=== PATIENT | male | born 1940 | race Caucasian/White ===

== ENCOUNTER 2018-12-19 10:45 | Inpatient (IN) | payer MEDICARE, BC ==
[2019-01-05] MEDS ORDERED: Buffered Lidocaine 1% SYRIN* 1 ML/SYRINGE INTRADERM ONE (18:01)
[2019-01-08] MEDS ORDERED: Famotidine IV* 10 MG/ML 2 ML (20 mg) IV ONE (06:00)
[2019-01-08] MEDS ORDERED: Lactated Ringers 1000 ML Bag* 1,000 ML IV SCH ×2 (06:00→11:00)
[2019-01-08] MEDS ORDERED: Famotidine IV* 10 MG/ML 2 ML (20 mg) ONE (06:01)
[2019-01-08] MEDS ORDERED: Bupivacaine 0.25% W/EPI* 10 ML SDV ONE ×2 (06:35)
[2019-01-08] MEDS ORDERED: Bacitracin INJECTION* 50,000 UNITS ONE (06:37)
[2019-01-08] MEDS ORDERED: Artificial Tear OPHTH.OINT* 3.5 GM ONE (06:47)
[2019-01-08] MEDS ORDERED: Gelfoam Sponge SIZE 100* SPONGE ONE (06:50)
[2019-01-08] MEDS ORDERED: Vancomycin(*) 1,000 MG in NS 0.9% 250 ML* 250 ML IVPB ONE (07:00)
[2019-01-08] MEDS ORDERED: Midazolam* 1 MG/ML 5 ML VIAL (5 MG) ONE (07:37)
[2019-01-08] MEDS ORDERED: fentaNYL* 50 MCG/ML 2 ML VIAL (100 MCG VIAL) ONE ×4 (07:37→10:17)
[2019-01-08] MEDS ORDERED: Propofol* 500 MG/50 ML BTL ONE ×2 (08:12→10:01)
[2019-01-08] MEDS ORDERED: DiMENhydriNATE IV* 50 MG/ML VIAL ONE (08:45)
[2019-01-08] MEDS ORDERED: Propofol* 10 MG/ML 20 ML BTL ONE (08:45)
[2019-01-08] MEDS ORDERED: Succinylcholine* 20 MG/ML 10 ML VIAL ONE (08:45)
[2019-01-08] MEDS ORDERED: Ondansetron INJ* 2 MG/ML VIAL ONE (08:45)
[2019-01-08] MEDS ORDERED: Lidocaine 2% PF * 5 ML VIAL ONE (08:45)
[2019-01-08] MEDS ORDERED: Dexamethasone IV* 4 MG/ML 1 ML (4 MG) ONE (08:45)
[2019-01-08] MEDS ORDERED: oxyCODONE TAB* 5 MG TAB PO PRN (10:11)
[2019-01-08] MEDS ORDERED: HYDROcodone/ACETAMIN 5-325 MG* 1 TAB PO PRN (10:23)
[2019-01-08] MEDS ORDERED: DiMENhydriNATE IV* 50 MG/ML VIAL IV PUSH PRN (10:23)
[2019-01-08] MEDS ORDERED: Naloxone* 0.4 MG/ML 1 ML VIAL IV PRN (10:23)
[2019-01-08] MEDS ORDERED: Magnesium Hydroxide LIQ* 30 ML UDC PO PRN (11:46)
[2019-01-08] MEDS ORDERED: Ondansetron INJ* 2 MG/ML VIAL IV PRN (11:46)
[2019-01-08] MEDS ORDERED: HYDROcodone/ACETAMIN 5-325 MG* 1 TAB ONE (12:27)
[2019-01-08] MEDS ORDERED: HYDROmorphone INJ1* 1 MG/ML SYRINGE ONE (12:27)
[2019-01-08] MEDS: HYDROmorphone INJ1* 1 MG/ML SYRINGE IV PRN ×5 (12:32→13:06)
[2019-01-08] MEDS: HYDROcodone/ACETAMIN 5-325 MG* 1 TAB PO PRN ×2 (18:45→23:46)
--- NOTE | 2019-01-08 19:32 | CONS ---
CC: Dr. Nori Hendrickson; Dr. Aleshia Florentino; Dr. Ronnie Milton * CONSULTATION REPORT: DATE OF CONSULT: 01/08/19 PRIMARY CARE PROVIDER: Dr. Nori Hendrickson. NEUROSURGEON: Dr. Aleshia Florentino. REQUESTING PHYSICIAN IN CONSULTATION: Dr. Aleshia Florentino. ATTENDING PHYSICIAN: Dr. Ronnie Milton (dictated by FRANTZ Barclay). REASON FOR CONSULT: Co-medical management. HISTORY OF PRESENT ILLNESS/HOSPITAL COURSE: Mr. Peterson is a 78-year-old male with a past medical history of hypertension, hyperlipidemia, mild mitral regurgitation, cardiomyopathy, and degenerative disk disease who presented to [facility] [place] for an elective L3-L4 lumbar spine fusion with Dr. Florentino. He is seen postoperatively in his room. He has some complaints of mild back stiffness, but denies pain in the lumbar region postoperatively. He notes that he has had 2 years of progressive weakness of the bilateral lower extremities as well as pain with walking or after exercise, left greater than right. He currently denies pain in the legs. He denies headache, vision changes, dizziness, lightheadedness, chest pain, shortness of breath, cough, fevers, chills, abdominal pain, nausea, vomiting, diarrhea, or constipation. He denies myalgias , arthralgias, or weakness at this current time. PAST MEDICAL HISTORY: 1. Cardiomyopathy. 2. Mild mitral regurgitation. 3. Hypertension. 4. Hyperlipidemia. 5. GERD. 6. Migraines. 7. Rheumatoid arthritis. 8. History of melanoma, status post resection. PAST SURGICAL HISTORY: Laminectomy x2, right foot x2, left foot x1, right hand. HOME MEDICATIONS: 1. Acetaminophen 325 mg p.o. q.6 hours p.r.n. for pain. 2. Aspirin 81 mg p.o. daily. 3. Atorvastatin 40 mg p.o. daily. 4. Calcium carbonate 500 mg p.o. daily. 5. Cyanocobalamin 1000 mcg p.o. daily. 6. Cyclosporine 0.05% ophthalmic 1 drop to both eyes b.i.d. 7. Enbrel 25 mg subcu twice weekly. 8. Fluticasone nasal spray 2 sprays both nares daily. 9. Guaifenesin/dextromethorphan 1 tab p.o. daily p.r.n. for cough. 10. Hydrocodone/acetaminophen 5/325 one tab p.o. b.i.d. p.r.n. for pain. 11. Loratadine 10 mg p.o. daily. 12. Magnesium oxide 300 mg p.o. daily. 13. Metoprolol succinate 25 mg p.o. daily. 14. Multivitamin 1 cap p.o. daily. 15. Omeprazole 20 mg p.o. daily. 16. Ramipril 10 mg p.o. daily. 17. Terazosin 4 mg p.o. at bedtime. DRUG ALLERGIES: LEFLUNOMIDE, HYDROXYCHLOROQUINE, METHOTREXATE, NYSTATIN, PENICILLIN, environmental/hay fever. FAMILY HISTORY: Maternal grandfather and mother, stroke. Father, prostate cancer and heart disease. No family history of diabetes. SOCIAL HISTORY: The patient is a part-time teacher and plays piano part-time. He is , but lives home alone. His has Alzheimer's and lives at [facility]. He does not currently smoke. He quit 20 to 30 years ago. Prior to that, he smoked approximately 2 to 3 pipes per day for about 20 years. He drinks 3 alcoholic beverages per night. In the event that he is unable to make his own medical decisions, he has appointed his son, Gordo Peterson, to be his surrogate decision maker. REVIEW OF SYSTEMS: A 14-point review of systems has been performed, and all the pertinent positives and negatives are in the HPI. All other systems are negative. PHYSICAL EXAM: General: Mr. Peterson is a well-developed, well-nourished, thin, older white male who appears somewhat younger than his stated age. He appears to be in no acute distress. He appears comfortable and is pleasant and cooperative. HEENT: PERRL. EOMI. Nonicteric sclerae. Hearing grossly intact. Oral mucous membranes are moist. There are no lesions. The tongue is at midline. The pharynx is clear. The palate elevates symmetrically. Cardiovascular: Regular rate and rhythm with S1, S2 present without murmurs, rubs, clicks, or gallops. There is no JVD. There is no peripheral edema. Radial and pedal pulses are palpable. Pulmonary: Symmetrical chest expansion without use of accessory muscles. Lungs are clear to auscultation without rhonchi, wheezes, or rub. There is no digital clubbing or cyanosis. Abdomen: Abdomen is flat. Bowel sounds noted in all quadrants. The abdomen is soft. There is no tenderness to palpation. Musculoskeletal: There are clean, dry, intact dressings in place to the left and the right of the lumbar spine posteriorly. The patient is able to move all of his extremities. Motor strength is 5/5 bilaterally. Neuro: The patient is awake. He is alert and oriented x3 with cranial nerves grossly intact. Again, able to move all of his extremities with equal strength, 5/5 bilateral upper and lower. Boiler Room Helper strength is equal. ASSESSMENT AND PLAN: Mr. Peterson is a 78-year-old male with a past medical history of cardiomyopathy, hypertension, hyperlipidemia, mild mitral regurgitation, and rheumatoid arthritis who presented to [facility] [place] for an elective lumbar spine fusion today. The patient will be admitted inpatient for: 1. L3-L4 lumbar spine fusion. The patient is postop day 0. Management per Neurosurgery. 2. Hypertension. We will continue the patient's home metoprolol with hold parameters. We will hold ramipril and restart as necessary. 3. Hyperlipidemia. Continue atorvastatin. 4. Gastroesophageal reflux disease. Continue PPI. 5. Rheumatoid arthritis. The patient has held his Enbrel for 4 weeks. We will continue to hold this medication while inpatient. He should follow up with his outer diameter grinder regarding when to restart this medication. 6. DVT prophylaxis: SCDs per Neurosurgery. 7. Code status: Full code. TIME SPENT: Approximately 30 minutes were spent on this consultation, greater than half that time was spent [id number] with the patient and his son obtaining history, performing physical, and reviewing the plan of care. FRANTZ PRO [id number]/[facility] #: [id number] [place]
[2019-01-08] MEDS ORDERED: Terazosin CAP* 1 MG PO SCH (21:00)
[2019-01-08] MEDS ORDERED: Atorvastatin* 40 MG TAB PO SCH (21:00)
[2019-01-08] MEDS: CMCS:Cyclosporine 0.05% OPHTH (NF) 0.4 ML VIAL BOTH EYES SCH (21:30)
--- NOTE | 2019-01-08 23:42 | OP ---
DATE OF OPERATION: 01/08/19 - ROOM #348 DATE OF : 42 SURGEON: Aleshia Florentino MD. SHOE SHINER: ROBERTA Doe. The case was done with the assistance of director surgical because of the complexity of the case. ANESTHESIA: General. PRE-OP DIAGNOSES: Degenerative disk disease and spondylolisthesis. POST-OP DIAGNOSIS: Degenerative disk disease and spondylolisthesis. OPERATIVE PROCEDURE: The patient underwent left L3-4 MIS TLIF with PEEK interbody cage, autologous iliac crest bone graft DBX, and pedicle screws at L3 and L4 with intraoperative navigation and intraoperative electrophysiological monitoring. ESTIMATED BLOOD LOSS: 25 cc. COMPLICATIONS: None. INDICATIONS: The patient is a very pleasant 78-year-old gentleman with complaints of back pain radiating to the left more than the right lower extremity. The patient has a history of previous laminectomies. MRI revealed severe degenerative disk disease with severe stenosis at L3-4 with grade 1 spondylolisthesis. After failing conservative treatment modalities, he was offered the option of surgical intervention for the above procedure. After explaining expectations, limitations, and possible complications of the procedure to the patient and his son with the complications including, but not limited to bleeding, infection, risk of injury to adjacent structures, coma, paralysis, , need for additional procedures, anesthesia risks, stroke, blindness, cancer, instability, hardware failure, adjacent level disease, pseudoarthrosis, spinal fluid leak, postoperative hematoma formation, loss of bladder or bowel control, injury to intraabdominal contents, deep venous thrombosis, pulmonary embolism, wound dehiscence, and skin infection, the patient was agreeable to proceed with surgery and informed consent was obtained. The patient understood that his condition may not improve and, in fact, may get worse after surgery and that he may need to have additional procedures in the future. He also understood that the operative plan may be modified according to intraoperative findings and conditions and that the procedure may be abandoned or done in more than one stages. He also understood that he may require prolonged ICU stay, prolonged hospitalization, and prolonged rehabilitation. The patient was agreeable to proceed with surgery and informed consent was obtained. DESCRIPTION OF PROCEDURE: The patient was brought to the operating room and was placed under general anesthesia by the anesthesia team. He was carefully positioned prone on the Quinn table and all bony prominences were meticulously padded. His skin was prepped and draped in a standard fashion. After appropriate surgical pause and patient identification, a small incision over the right iliac crest was performed after infiltrating the skin with local anesthetic. The skin incision was performed with the #10 surgical blade. The incision was carried down with Bovie cautery and with the assistance of Jamshidi needle, the Corex trocar was inserted, and iliac crest bone graft was harvested. Through the same stab wound incision, the pin for the navigation star was inserted and intraoperative O-arm imaging was obtained. The patient's data was transferred to the navigational platform, and under stereotactic navigation, the projections of the pedicles of L3 and L4 bilaterally were marked on the skin. The skin incision sites were infiltrated with local anesthetic. A #10 surgical blade was used to perform a single incision on the left side and 2 stab incisions on the right side. This incision was carried down with Bovie cautery, and the pedicles of L3 and L4 bilaterally were cannulated, and pedicle screws were inserted with the use of intraoperative navigation. Privacy[employer]ronic iVideosongsyager awl-tipped screws were inserted with 6.5 x 45 for all levels. Then, through a separate incision into the dorsal fascia, the METRx tubular retractor system was introduced and the left moreno lamina of L3 as well as the L3-4 facet was exposed under microscopic modification. A medial facetectomy was performed with the use of high-speed drill and Kerrison punches. The ligamentum flavum was then gently reflected, and after foraminotomy was performed, the thecal sac and the exiting nerve root were carefully identified. The thecal sac was then retracted medially, and diskectomy and preparation of the disk space was performed after incising the annulus fibrosus with the #15 surgical blade. The disk space preparation was performed with a series of dilators, Kerrison punches, and curettes and pituitary rongeurs. A 9 x 28 mm PEEK Elevate interbody cage was then inserted after the disk space was filled with locally harvested bone graft and iliac crest bone graft and mixed with DBX. The same graft mixture was then placed into the interbody spacer and this was inserted. The interbody spacer was then expanded, and after confirmation of meticulous hemostasis and copious irrigation and meticulous inspection, the tubular retractor was then gently removed and the dorsal fascia was closed with interrupted 0 Vicryl sutures. Then, 2 cobalt chrome rods, 40 mm on the left side and 50 mm on the right side, were then inserted through the same stab wound incisions and secured in place with screw head caps. A second O-arm spin was then obtained and confirmed excellent placement of all hardware. Then, the screw head caps were tightened and the extension towers were then gently removed as well as navigation star pin. After all the wounds were copiously irrigated and after meticulous hemostasis and meticulous inspection, the wounds were closed in layers with 2-0 interrupted Vicryl sutures to approximate the dorsal fascia and 2-0 interrupted Vicryl suture to approximate the subcutaneous tissue. The skin was then covered with Dermabond, and at the end of the procedure, all counts were reported to be correct. The patient remained hemodynamically stable throughout the case and intraoperative electrophysiological monitoring remained stable throughout the case. The patient was then turned supine, was extubated, and was transferred to recovery in excellent condition. [id number]/[facility] #: [id number] [place]
[2019-01-09] MEDS: HYDROcodone/ACETAMIN 5-325 MG* 1 TAB PO PRN ×2 (06:39→14:43)
[2019-01-09] MEDS ORDERED: Cyanocobalamin TAB* 500 MCG PO SCH (09:00)
[2019-01-09] MEDS ORDERED: Metoprolol Succinate XL TAB* 25 MG PO SCH (09:00)
[2019-01-09] MEDS ORDERED: Pantoprazole TAB * 40 MG TAB PO SCH (09:00)
[2019-01-09] MEDS ORDERED: Cetirizine* 10 MG TAB PO SCH (09:00)
[2019-01-09] MEDS: CMCS:Cyclosporine 0.05% OPHTH (NF) 0.4 ML VIAL BOTH EYES SCH (09:57)
[2019-01-09 11:12] VITALS: BP 129/57
--- NOTE | 2019-01-09 11:44 | PN ---
Progress Note - Progress Note Date of Service: 01/09/19 SOAP: Subjective: [] 78 y/o male post L3/L4 TLIF POD # 1, he is doing well has post procedure pain that has been well controlled with medication. Patient reports ambulating with assistance, he felt pretty steady on his feet. He denies any radicular pain, has voided. He has passed flatulence but has not moved his bowels. Patient did not have any acute issues over night. He has expressed interest in possible having visiting nursing services help him at home with changing hi bandages. Objective: [] Initial Vitals Temp Pulse Resp BP Pulse Ox 98.5 F 60 16 132/64 98 12/11/18 08:46 12/11/18 08:46 12/11/18 08:46 12/11/18 08:46 12/11/18 08:46 General: Patent laying flat in bed resting, NAD. Neuro: A&O x 3 CN II - XII grossly intact , pupils in equal in size, EOM's intact. UPE motor strength 5/5 throughout bilaterally, lower extremity motor strength in intact 5/5 throughout, sensation intact throughout with light touch. Derm::dressing C/D/I Assessment: [] 78 y/o male post TLIF of L3/L4 POD # 1 patient doing well has been stable overnight, he is doing well with ambulation, will possible be discharged home today. Plan: [] 1) pain control as needed 2) continue to ambulate 3) D/C planning
[2019-01-09] MEDS ORDERED: Fluticasone NASAL SPRAY 50MCG* 16 gm SPRAY BTL BOTH NARES SCH (18:00)
--- NOTE | 2019-01-09 23:57 | DS ---
DISCHARGE SUMMARY: DATE OF ADMISSION: 01/08/19 DATE OF DISCHARGE: 01/09/19 DIAGNOSIS ON ADMISSION: Degenerative disk disease with spondylolisthesis. POSTOPERATIVE DIAGNOSIS: Degenerative disk disease with spondylolisthesis. DISPOSITION ON DISCHARGE: Good. PLACE OF DISCHARGE: Home. HOSPITAL COURSE: This patient is a very pleasant 78-year-old gentleman with complaints of back pain radiating to his left more than right lower extremity. The patient has a history of previous laminectomies. MRI revealed severe degenerative disk disease and severe stenosis at L3-L4 with grade 1 spondylolisthesis. After failing conservative therapy modalities, he was offered an option of surgical intervention in the form of a left L3-L4 MIS TLIF with PEEK interbody cages, autologous iliac crest bone graft DBX, and pedicle screws at L3-L4 with intraoperative navigation and intraoperative electrophysiological monitoring. After explaining the expectations, limitations , and possible complication of the procedure to the patient and his family, the patient was consented for the procedure. He underwent surgery on 01/08/19 and tolerated the procedure well, went to PACU, and then followed by short surgical unit for 24-hour observation. The patient did really well during that period. His pain was well controlled. He was able to ambulate and he was voiding, eating as well as passing flatulence. DISCHARGE INSTRUCTIONS: He was given discharge instructions of no bending, no twisting, no heavy lifting, no driving, and avoiding tubs and pools, as well as followup with primary care and neurosurgery within 1 week. Also, the patient was given a referral for visiting nurse services to help him with bandage changes daily. He was also given pain medications to help manage his pain at home. The patient understood the instructions and was discharged to home. Thank you for allowing me to be a part of the patient's care. [id number]/[facility] #: [id number] [place]
== END 2019-01-09 15:55 | disposition home health service (06) | DRG 460 ==
LOC: AA 01-08 05:45 → SSU 01-08 11:46
PROVIDERS: ADMIT Neurological Surgery; ATTEND Neurological Surgery
PROC: 0ST20ZZ Resection of Lumbar Vertebral Disc, Open Approach (ICD-10-PCS; 2019-01-08)
PROC: 0QB20ZZ Excision of Right Pelvic Bone, Open Approach (ICD-10-PCS; 2019-01-08)
PROC: 8E0WXBZ Computer Assisted Procedure of Trunk Region (ICD-10-PCS; 2019-01-08)
PROC: 0SG00AJ Fusion of Lumbar Vertebral Joint with Interbody Fusion Device, Posterior Approach, Anterior Column, Open Approach (ICD-10-PCS; principal; 2019-01-08 07:30)
DX: M51.36 Other intervertebral disc degeneration, lumbar region (principal); I42.9 Cardiomyopathy, unspecified; M43.16 Spondylolisthesis, lumbar region; M99.23 Subluxation stenosis of neural canal of lumbar region; M06.09 Rheumatoid arthritis without rheumatoid factor, multiple sites; K21.9 Gastro-esophageal reflux disease without esophagitis; I10 Essential (primary) hypertension; G43.909 Migraine, unspecified, not intractable, without status migrainosus; I34.0 Nonrheumatic mitral (valve) insufficiency; E78.5 Hyperlipidemia, unspecified; Z88.0 Allergy status to penicillin; Z88.8 Allergy status to other drugs, medicaments and biological substances; Z79.1 Long term (current) use of non-steroidal anti-inflammatories (NSAID); Z79.82 Long term (current) use of aspirin; Z79.899 Other long term (current) drug therapy; Z80.42 Family history of malignant neoplasm of prostate; Z87.891 Personal history of nicotine dependence; Z85.820 Personal history of malignant melanoma of skin; Z82.3 Family history of stroke; Z82.49 Family history of ischemic heart disease and other diseases of the circulatory system
CPT/HCPCS: 72100; 72131; 76000; A9270-GY; C1713; C9359; G8978-GP-CH; G8979-GP-CH; G8980-GP-CH; G8993-GO-CK; G8994-GO-CJ; J0330; J1100; J1170; J1240; J2250; J2405; J2704; J3010; J3370

== ENCOUNTER 2020-02-07 22:52 | Observation (INO) ==
[2020-02-07] MEDS ORDERED: NS 0.9% 1000 ml BAG 1,000 ML IV ONE (22:58)
[2020-02-07 23:26] LABS: ABS Basophils 0.1 10^3/ul (0-0.2); ABS Eosinophils 0.5 10^3/ul (0-0.6); ABS Lymphocytes 1.5 10^3/ul (1.0-4.8); ABS Monocytes 0.6 10^3/ul (0-0.8); ABS Neutrophils 3.3 10^3/ul (1.5-7.7); Hematocrit 38 % (42-52); Hemoglobin 13.4 g/dL (14.0-18.0); Lymphocyte % 25.9 %; Mean Corpuscular HGB Conc 35 g/dL (31-36); Mean Corpuscular Hemoglobin 33 pg (27-31); Mean Corpuscular Volume 95 fL (80-94); Mean Platelet Volume 7.3 fL (7.4-10.4); Nucleated Red Blood Cells % 0.1; Platelet Count 167 10^3/uL (150-450); Red Blood Count 4.02 10^6 /uL (4.18-5.48); Red Cell Distribution Width 12 % (10-15); White Blood Count 5.9 10^3/uL (3.5-10.8)
[2020-02-07 23:43] LABS: Albumin 4.2 g/dL (3.2-5.2); Albumin/Globulin Ratio 1.7 (1-3); BUN/Creatinine Ratio 19.4 (8-20); Calcium 9.1 mg/dL (8.6-10.3); EGFR African American 89.5 (>60); Globulin 2.5 g/dL (2-4); HDL Cholesterol 49.1 mg/dL; Total Bilirubin 0.7 mg/dL (0.2-1.0); Total Protein 6.7 g/dL (6.4-8.9)
[2020-02-08 00:06] LABS: INR 1.16 (0.82-1.09)
[2020-02-08 00:07] LABS: Activated Partial Thrombo Time 28.3 seconds (26.0-38.0)
[2020-02-08] MEDS ORDERED: Iohexol 300 (CONTRAST) 10 ML SDV IV ONE (01:06)
[2020-02-08] MEDS: Aspirin EC 81 mg TAB.EC (enteric coated) PO SCH ×2 (03:17→18:03)
[2020-02-08 07:03] LABS: ABS Eosinophils 0.5 10^3/ul (0-0.6); ABS Lymphocytes 1.2 10^3/ul (1.0-4.8); ABS Monocytes 0.6 10^3/ul (0-0.8); ABS Neutrophils 4.2 10^3/ul (1.5-7.7); Eosinophil % 7.3 %; Hematocrit 41 % (42-52); Lymphocyte % 18.8 %; Mean Corpuscular HGB Conc 34 g/dL (31-36); Mean Corpuscular Hemoglobin 33 pg (27-31); Mean Corpuscular Volume 96 fL (80-94); Mean Platelet Volume 7.9 fL (7.4-10.4); Platelet Count 158 10^3/uL (150-450); Red Blood Count 4.24 10^6 /uL (4.18-5.48); Red Cell Distribution Width 12 % (10-15); White Blood Count 6.5 10^3/uL (3.5-10.8)
[2020-02-08 07:05] LABS: Anion Gap 5 mmol/L (2-11); BUN/Creatinine Ratio 22.4 (8-20); Blood Urea Nitrogen 19 mg/dL (6-24); C Reactive Protein < 1.00 mg/L (<8.01); CO2 Carbon Dioxide 26 mmol/L (22-32); Calcium 8.6 mg/dL (8.6-10.3); Chloride 105 mmol/L (101-111); EGFR African American 105.5 (>60); EGFR Non-African American 87.2 (>60); Glucose 141 mg/dL (70-100); Sodium 136 mmol/L (135-145)
[2020-02-08 07:32] LABS: Vitamin B12 597 pg/mL (180-914)
[2020-02-08] MEDS ORDERED: Lorazepam PYXIS KEY PRN ×2 (07:39→13:50)
[2020-02-08] MEDS ORDERED: LORazepam 2 mg VIAL 1 ml IV PUSH ONE ×2 (07:39→13:50)
[2020-02-08 10:22] LABS: Urine Appearance Clear; Urine Bilirubin Negative (Negative); Urine Blood Negative (Negative); Urine Color Yellow; Urine Glucose Negative (Negative); Urine Ketones Negative (Negative); Urine Nitrite Negative (Negative); Urine Protein Negative (Negative); Urine Specific Gravity 1.018 (1.010-1.030); Urine Urobilinogen Negative (Negative)
[2020-02-08] MEDS ORDERED: Enoxaparin 40 MG/0.4 ML SYR SUBCUT SCH (21:00)
[2020-02-08 22:41] LABS: TSH Ultra Thyroid Stim Horm 0.62 mcIU/mL (0.34-5.60)
[2020-02-09 09:45] VITALS: BP 129/61
[2020-02-09 09:54] LABS: ABS Eosinophils 0.5 10^3/ul (0-0.6); ABS Lymphocytes 1.4 10^3/ul (1.0-4.8); ABS Monocytes 0.4 10^3/ul (0-0.8); ABS Neutrophils 3.3 10^3/ul (1.5-7.7); Eosinophil % 9.5 %; Hematocrit 41 % (42-52); Hemoglobin 14.1 g/dL (14.0-18.0); Lymphocyte % 24.2 %; Mean Corpuscular HGB Conc 35 g/dL (31-36); Mean Corpuscular Hemoglobin 33 pg (27-31); Mean Corpuscular Volume 97 fL (80-94); Mean Platelet Volume 7.6 fL (7.4-10.4); Platelet Count 163 10^3/uL (150-450); Red Blood Count 4.21 10^6 /uL (4.18-5.48); Red Cell Distribution Width 13 % (10-15); White Blood Count 5.7 10^3/uL (3.5-10.8)
[2020-02-09 10:07] LABS: BUN/Creatinine Ratio 15.5 (8-20); Calcium 8.9 mg/dL (8.6-10.3); EGFR African American 106.9 (>60); EGFR Non-African American 88.4 (>60); Potassium 3.9 mmol/L (3.5-5.0)
== END 2020-02-09 15:15 | disposition home or self-care (01) ==
LOC: ED 22:52 → MEDTELE 22:52
PROVIDERS: ADMIT Internal Medicine; ATTEND Internal Medicine

== ENCOUNTER 2022-03-12 11:05 | Observation (INO) ==
[~2022-03-12 11:05] MED LIST: Buffered Lidocaine 1% SYRIN 1 ml INTRADERM ONE; Dexamethasone IV 4 MG/ML VIAL 1 ml VIAL IV SLOW PU ONE; Famotidine IV 10 MG/ML 2 ml VIAL (20 mg) IV ONE; Lactated Ringers 1000 ml BAG 1,000 ML IV SCH
[2022-03-12] MEDS ORDERED: Dexamethasone IV 4 MG/ML VIAL 1 ml VIAL ONE (12:03)
[2022-03-12] MEDS ORDERED: Chlorhexidine MOUTHWASH 0.12% 15 ML UDC ONE (12:03)
[2022-03-12] MEDS ORDERED: Famotidine IV 10 MG/ML 2 ml VIAL (20 mg) ONE (12:04)
[2022-03-12] MEDS ORDERED: Buffered Lidocaine 1% SYRIN 1 ml INTRADERM ONE (12:04)
[2022-03-12] MEDS ORDERED: Clindamycin 900 MG/D5W BAG 900 MG/50 ML BAG IVPB ONE (12:04)
[2022-03-12] MEDS ORDERED: Thrombin 5,000 UNITS 1 APPLIC KIT - topical use - TOPICAL ONE (14:12)
[2022-03-12] MEDS ORDERED: ceFAZolin VIAL VIAL ONE (14:12)
[2022-03-12] MEDS ORDERED: Gelfoam Sponge SIZE 100 SPONGE ONE (14:12)
[2022-03-12] MEDS ORDERED: fentaNYL 100 mcg/2 ml 50 MCG/ML VIAL ONE ×2 (14:26→15:53)
[2022-03-12] MEDS ORDERED: Propofol 10 MG/ML 20 ML BTL ONE (14:26)
[2022-03-12] MEDS ORDERED: Lidocaine 2% PF 5 ML VIAL ONE (14:26)
[2022-03-12] MEDS ORDERED: Rocuronium 50 mg VIAL 10 mg/ml 5 ml VIAL (50 mg) ONE (14:27)
[2022-03-12] MEDS ORDERED: HYDROcodone/ACETAMIN 5/325 mg TAB PO PRN (14:32)
[2022-03-12] MEDS ORDERED: oxyCODONE/Acetamin 5/325 mg TAB PO PRN (14:32)
[2022-03-12] MEDS ORDERED: fentaNYL 100 mcg/2 ml 50 MCG/ML VIAL IV PRN (14:32)
[2022-03-12] MEDS ORDERED: Prochlorperazine 5 mg/ml 2 ml VIAL (10 mg) IV PRN (14:32)
[2022-03-12] MEDS ORDERED: Naloxone 0.4 mg VIAL 0.4 mg/ml 1 ml VIAL IV PRN (14:32)
[2022-03-12] MEDS ORDERED: Glycopyrrolate IV 0.2 MG/ML 1 ML VIAL ONE (15:23)
[2022-03-12] MEDS ORDERED: Ondansetron 4 mg VIAL 2 MG/ML 2 ml VIAL ONE (15:32)
[2022-03-12] MEDS ORDERED: Sugammadex 500 MG/5 ML 5 ml VIAL IV PUSH ONE (15:45)
[2022-03-12] MEDS ORDERED: Ondansetron 4 mg VIAL 2 MG/ML 2 ml VIAL IV PRN (16:00)
[2022-03-12] MEDS ORDERED: Lactated Ringers 1000 ml BAG 1,000 ML IV SCH (16:00)
[2022-03-12] MEDS ORDERED: Magnesium Hydroxide LIQ 30 ML UDC PO PRN (16:00)
[2022-03-12] MEDS: Aspirin EC 81 mg TAB.EC (enteric coated) PO SCH (21:20)
[2022-03-12] MEDS: Calcium Carb (TUMS) 500 mg CHEW TAB PO SCH (21:20)
[2022-03-12] MEDS: CMCS: Alfuzosin ER 10 mg TAB.ER (NF) 10 MG TAB.ER PO SCH (23:08)
[2022-03-13] MEDS: CMCS: Alfuzosin ER 10 mg TAB.ER (NF) 10 MG TAB.ER PO SCH ×2 (08:39→20:18)
[2022-03-13] MEDS: RIBOFLAVIN 100 MG PO SCH (08:40)
[2022-03-13] MEDS: Calcium Carb (TUMS) 500 mg CHEW TAB PO SCH (20:15)
[2022-03-13] MEDS: Aspirin EC 81 mg TAB.EC (enteric coated) PO SCH (20:18)
[2022-03-14] MEDS: RIBOFLAVIN 100 MG PO SCH (08:06)
[2022-03-14] MEDS: CMCS: Alfuzosin ER 10 mg TAB.ER (NF) 10 MG TAB.ER PO SCH (08:36)
[2022-03-14 08:37] VITALS: BP 138/66
== END 2022-03-14 11:21 | disposition home or self-care (01) ==
LOC: OR 11:05 → SSU 11:05
PROVIDERS: ADMIT Neurological Surgery; ATTEND Neurological Surgery